=== PATIENT | male | born 1970 | race African-American/Black ===

== ENCOUNTER 2025-02-09 20:51 | Emergency (ER) | payer OTHER ==
[~2025-02-09] VITALS: Ht 172.7 cm; Wt 85.0 kg
[2025-02-09 20:58] VITALS: O2SAT 100
[2025-02-09 21:15] VITALS: TEMP 36.6; O2SAT 99
[2025-02-09] MEDS: KETOROLAC 30MG/ML VIAL IM ONE (22:46)
[2025-02-09 22:47] VITALS: BP 118/73; PULSE 83; RESP 16
[2025-02-09] MEDS: HYDROCODONE/ACETAMINOPHEN 5/325MG TABLET PO ONE (22:47)
[2025-02-09] MEDS ORDERED: HYDR-4001 MT (23:45)
[2025-02-09] MEDS ORDERED: NAPR-1176 MT (23:45)
== END 2025-02-10 00:03 | disposition home or self-care (01) ==
LOC: ER 20:51
DX: M25.562 Pain in left knee (principal); M10.9 Gout, unspecified; Z79.52 Long term (current) use of systemic steroids; Z79.891 Long term (current) use of opiate analgesic
CPT/HCPCS: 93971; 73562; 96372; 99285; J1885; Z7610